=== PATIENT | male | born 1990 | race Hispanic/Latino ===

== ENCOUNTER 2018-10-29 23:35 | Inpatient (IN) | payer SELFPAY ==
[2018-10-30 00:13] LABS: Mean Corpuscular HGB CONC 33.8 g/dL (32.0-36.0); Mean Corpuscular Hemoglobin 31.4 pg (27.0-31.0); Mean Corpuscular Volume 92.9 fL (78.0-98.0); Mean Platelet Volume 11.4 fL (7.4-10.4); Platelet Count 152 thou/uL (130-400); RBC Distribution Width 12.1 % (11.5-14.5); Red Blood Cell (RBC) Count 5.43 mill/uL (4.70-6.10); White Blood Cell (WBC) Count 24.7 thou/uL (4.8-10.8)
[2018-10-30 00:29] LABS: Band 11 % (5-11); Lymphocytes 1 % (21-51); MDiff Complete? YES; Monocytes 7 % (0-10); Neutrophil 81 % (42-75)
[2018-10-30 00:33] LABS: ALT (SGPT) 24 U/L (8-55); AST (SGOT) 33 U/L (5-34); Albumin 4.6 g/dL (3.5-5.0); Alkaline Phosphatase 58 U/L (40-150); Anion Gap 17 mmol/L (10-20); BUN (Urea Nitrogen) 33 mg/dL (8.9-20.6); Calc. Creatinine Clearance 0 mL/min (70-130); Calcium 9.1 mg/dL (7.8-10.44); Carbon Dioxide 17 mmol/L (22-29); Chloride 110 mmol/L (98-107); Estimated GFR-MDRD 26; Globulin 2.9 g/dL (2.4-3.5); Glucose 102 mg/dL (70-105); Potassium 4.2 mmol/L (3.5-5.1); Protein, Total 7.5 g/dL (6.0-8.3); Sodium 140 mmol/L (136-145)
[2018-10-30] MEDS ORDERED: Ondansetron PF 4 MG/2 ML Vial IVP PRN (01:44)
[2018-10-30] MEDS ORDERED: Acetaminophen 325 MG TAB PO PRN (01:44)
[2018-10-30 02:13] LABS: Magnesium 2.5 mg/dL (1.6-2.6); Phosphorus 3.9 mg/dL (2.3-4.7)
[2018-10-30] MEDS: Lactated Ringer's 1,000 ML IV SCH ×4 (03:50→22:03)
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
[2018-10-30 04:58] VITALS: BMI 27.3
[2018-10-30 05:42] LABS: #Lymphocytes 1.2 thou/uL (1.20-3.40); #Monocytes 1.3 thou/uL (0.11-0.59); #Neutrophils 16.5 thou/uL (1.40-6.50); %Basophils 0.1 % (0.0-1.0); %Eosinophils 0.3 % (0.0-10.0); %Lymphocytes 6.4 % (21.0-51.0); %Monocytes 6.8 % (0.0-10.0); %Neutrophils 86.4 % (42.0-75.0); Hemoglobin 16.3 g/dL (14.0-18.0); Mean Corpuscular HGB CONC 33.8 g/dL (32.0-36.0); Mean Corpuscular Hemoglobin 30.8 pg (27.0-31.0); Mean Corpuscular Volume 91.4 fL (78.0-98.0); Mean Platelet Volume 11.7 fL (7.4-10.4); Platelet Count 162 thou/uL (130-400); RBC Distribution Width 11.9 % (11.5-14.5); Red Blood Cell (RBC) Count 5.28 mill/uL (4.70-6.10); White Blood Cell (WBC) Count 19.1 thou/uL (4.8-10.8)
[2018-10-30 06:12] LABS: ALT (SGPT) 22 U/L (8-55); AST (SGOT) 30 U/L (5-34); Albumin 4.5 g/dL (3.5-5.0); Alkaline Phosphatase 55 U/L (40-150); Anion Gap 18 mmol/L (10-20); BUN (Urea Nitrogen) 29 mg/dL (8.9-20.6); Bilirubin, Total 0.9 mg/dL (0.2-1.2); Calc. Creatinine Clearance 67 mL/min (70-130); Calcium 9.1 mg/dL (7.8-10.44); Carbon Dioxide 19 mmol/L (22-29); Chloride 105 mmol/L (98-107); Estimated GFR-MDRD 43; Globulin 2.8 g/dL (2.4-3.5); Glucose 142 mg/dL (70-105); Potassium 3.9 mmol/L (3.5-5.1); Protein, Total 7.3 g/dL (6.0-8.3); Sodium 138 mmol/L (136-145)
[2018-10-30 09:01] LABS: Bacteria/HPF None Seen HPF (None Seen); Bilirubin Negative (Negative); Blood, Urine Trace (Negative); Clarity Turbid (Clear); Glucose, Urine (Dipstick) Normal (Negative); Leukocyte 250 Leu/uL (Negative); Mucous/LPF 2+ LPF (<2+); Nitrite Negative (Negative); Protein, Urine (Dipstick) 100 mg/dL (Neg-Trace); Urobilinogen Normal mg/dL (Less than 2); WBC/HPF Greater than 50 HPF (0-3)
[2018-10-30 09:11] LABS: Creatinine, Urine 238.51 mg/dL (63-166)
--- NOTE | 2018-10-30 10:30 | ULT ---
ULTRASOUND RETROPERITONEUM COMPLETE: (RENAL) DATE: 10/30/2018. HISTORY: A 28-year-old male with renal failure. FINDINGS: The right kidney measures 10.5 x 5 x 5.5 cm. The left kidney measures 10 x 6 x 4.5 cm. Both kidneys have normal cortical thickness and normal cortical echogenicity. There is no hydronephrosis. Curso ry images of the urinary bladder demonstrate no gross abnormality. Urinary bladder volume at time of ultrasound scan: 20 mL. IMPRESSION: Normal jn [] POS: TPC
[2018-10-30] MEDS ORDERED: Enoxaparin Sodium 40 MG/0.4 ML SYRINGE SC SCH (17:30)
[2018-10-31] MEDS: Lactated Ringer's 1,000 ML IV SCH (04:38)
[2018-10-31 05:29] LABS: #Basophils 0.1 thou/uL (0.0-0.2); #Eosinphils 0.1 thou/uL (0.0-0.7); #Lymphocytes 2.6 thou/uL (1.20-3.40); #Monocytes 0.6 thou/uL (0.11-0.59); %Basophils 1.4 % (0.0-1.0); %Eosinophils 1.9 % (0.0-10.0); %Lymphocytes 34.4 % (21.0-51.0); %Monocytes 8.5 % (0.0-10.0); %Neutrophils 53.8 % (42.0-75.0); Hemoglobin 14.5 g/dL (14.0-18.0); Large Platelets SLIGHT; MDiff Complete? YES; Mean Corpuscular HGB CONC 34.1 g/dL (32.0-36.0); Mean Corpuscular Volume 93.6 fL (78.0-98.0); Mean Platelet Volume 11.9 fL (7.4-10.4); Platelet Count 124 thou/uL (130-400); Platelet Morphology Comment Appears Decreased; RBC Distribution Width 12.1 % (11.5-14.5); RBC Morphology Normal; Red Blood Cell (RBC) Count 4.54 mill/uL (4.70-6.10); White Blood Cell (WBC) Count 7.4 thou/uL (4.8-10.8)
[2018-10-31 08:36] LABS: RBC/HPF 0-3 HPF (0-3); Squamous Epithelial 0-3 HPF (0-3)
[2018-10-31 08:51] LABS: Bacteria/HPF 1+ HPF (None Seen)
[2018-10-31] MEDS ORDERED: Enoxaparin Sodium 40 MG/0.4 ML SYRINGE SC SCH (09:00)
--- NOTE | 2018-10-31 09:05 | PDOC.FM ---
- Objective Vital Signs & Weight: Vital Signs (12 hours) Temp Pulse Resp BP Pulse Ox 10/31/18 08:00 98 F 62 16 114/66 98 10/31/18 04:00 98.1 F 54 L 18 117/60 98 10/31/18 00:00 97.9 F 68 18 113/60 96 Weight Weight 81.511 kg I&O: 10/30/18 10/31/18 11/01/18 06:59 06:59 06:59 Intake Total 6300 Output Total 630 Balance 5670 Result Diagrams: 10/31/18 04:28 10/30/18 05:01 Dx/Plan (1) Elevated CK Status: Acute (2) Acute renal failure Status: Acute - Plan Plan: Acute Renal Failure: - reports this has happened in the past. Likely 2/2 severe dehydration - Cr 4.78 -> 1.87, GFR of 43 today - bilateral renal US normal - Fena shows prerenal - strict I/Os to monitor urine output - will continue IVFs, LR @ 150 ml/hr - Repeat UA this AM Elevated CK - CK continues to elevate, 346-> 552 this AM - Recheck tomorrow Code Status: FULL Dispo: Anticipate hospital stay > 48 hours. Likely home tomorrow.
[2018-10-31 10:50] LABS: Anion Gap 15 mmol/L (10-20); BUN (Urea Nitrogen) 13 mg/dL (8.9-20.6); Calc. Creatinine Clearance 159 mL/min (70-130); Calcium 8.5 mg/dL (7.8-10.44); Carbon Dioxide 21 mmol/L (22-29); Chloride 110 mmol/L (98-107); Estimated GFR-MDRD Greater than 90; Glucose 78 mg/dL (70-105); Potassium 4.6 mmol/L (3.5-5.1); Sodium 141 mmol/L (136-145)
--- NOTE | 2018-10-31 11:04 | PDOC.FM ---
- Subjective Subjective: Patient feels well. Voiding well. No pain or other complaints today. - Objective Vital Signs & Weight: Vital Signs (12 hours) Temp Pulse Resp BP Pulse Ox 10/31/18 08:00 98 F 62 16 114/66 98 10/31/18 04:00 98.1 F 54 L 18 117/60 98 10/31/18 00:00 97.9 F 68 18 113/60 96 Weight Weight 81.511 kg I&O: 10/30/18 10/31/18 11/01/18 06:59 06:59 06:59 Intake Total 6300 Output Total 630 Balance 5670 Result Diagrams: 10/31/18 04:28 10/31/18 04:28 Phys Exam - Physical Examination Constitutional: NAD HEENT: moist MMs Respiratory: no wheezing, clear to auscultation bilateral Cardiovascular: RRR, no significant murmur Gastrointestinal: soft, non-tender, positive bowel sounds Musculoskeletal: no edema, pulses present Neurological: moves all 4 limbs contracture of L arm with extensive scarring Psychiatric: normal affect, A&O x 3 Skin: normal turgor, cap refill <2 seconds Dx/Plan (1) Elevated CK Status: Acute (2) Acute renal failure Status: Acute - Plan Plan: Acute Renal Failure 2/2 severe dehydration - reports this has happened in the past - Cr improved, GFR > 90 this AM - bilateral renal US normal - Fena shows prerenal -discharge to home today, with follow up Elevated CK - CK continues to elevate, 346-> 552 this AM, increasing slowly - This level is increasing slowly, will encourage continued hydration at this time, but is not at a dangerous level and will likely not get much higher as insult has resolved Code Status: FULL Dispo: Discharge today Addendum - Attending - Attending Attestation Date/Time: 10/31/18 [id number] I personally evaluated the patient and discussed the management with Dr. burkett. I agree with the History, Examination, Assessment and Plan documented above with any addition or exceptions noted below. pt feels back to baseline. Cr back to normal. Stable for d/c home with precautions to hydrate before, during and after work.
[2018-10-31 11:45] VITALS: TEMP 98.1
[2018-10-31 16:04] VITALS: BP 114/63
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
== END 2018-10-31 17:14 | disposition home or self-care (01) | DRG 641 ==
LOC: ERS 23:35 → SURG B 10-30 01:06
PROVIDERS: ADMIT Emergency Medicine; ATTEND Emergency Medicine
DX: E86.0 Dehydration (principal); N17.9 Acute kidney failure, unspecified; F17.210 Nicotine dependence, cigarettes, uncomplicated; Z88.0 Allergy status to penicillin
CPT/HCPCS: 36415; 76770; 80048; 81001; 81015; 82550; 82570; 83735; 84100; 84300; 85025; 87077; 87086; 99285; J1650